=== PATIENT | female | born 1975 | race Caucasian/White ===

== ENCOUNTER → 2024-03-31 08:53 | Outpatient (REF) | payer OTHER, SELFPAY | LOC: WDC 08:53 | PROVIDERS: ATTENDING PHYSICIAN Nurse Practitioner Adult Health | DX: N64.4 Mastodynia (principal) | CPT/HCPCS: 76642; 77062; 77066 ==

== ENCOUNTER → 2024-09-19 06:33 | Outpatient (REF) | payer OTHER, SELFPAY | LOC: MRI 3T 06:33 | PROVIDERS: ATTENDING PHYSICIAN Physical Medicine & Rehabilitation; FAMILY PHYSICIAN Nurse Practitioner Adult Health | DX: M54.17 Radiculopathy, lumbosacral region (principal) | CPT/HCPCS: 72148 ==